=== PATIENT | male | born 1945 | race Caucasian/White ===

== ENCOUNTER 2025-01-09 07:05 | Day surgery (SDC) | payer OTHER ==
[~2025-01-09] VITALS: Ht 182.9 cm; Wt 88.5 kg
[2025-01-09] VITALS (10 sets, daily range): BP systolic 126–156; BP diastolic 70–81; PULSE 63–93; RESP 15–16; TEMP 97.3–97.6
[~2025-01-09 07:05] MED LIST: AMLO1CAP87 PO; AMOX-429 PO; CETI-89 PO; FLUT1BLS3 IH; MULT-1367 PO; PRAV20TA4 PO; SAW/1TAB2 PO; TAMS-55 PO
[2025-01-09] MEDS ORDERED: proPOFol 10 MG/ML 20ML VIAL IV ONE (08:44)
[2025-01-09] MEDS ORDERED: FINA5TAB41 PO (09:53)
[2025-01-09] MEDS ORDERED: DOCU-280 PO (09:53)
[2025-01-09] MEDS ORDERED: METO-408 PO (09:53)
[2025-01-09] MEDS ORDERED: AMLO-257 PO (09:53)
[2025-01-09] MEDS ORDERED: ALBUHFA IH (09:53)
[2025-01-09] MEDS ORDERED: MONT5TAB25 PO (09:53)
== END 2025-01-09 10:10 | disposition home or self-care (01) ==
LOC: ENDO 07:05 → DAH 07:15 → ENDO 10:10
PROVIDERS: ATTEND Internal Medicine
DX: R13.10 Dysphagia, unspecified (principal); K29.50 Unspecified chronic gastritis without bleeding; R12 Heartburn; K57.30 Diverticulosis of large intestine without perforation or abscess without bleeding; I10 Essential (primary) hypertension; E78.5 Hyperlipidemia, unspecified; Z90.89 Acquired absence of other organs; Z79.899 Other long term (current) drug therapy
CPT/HCPCS: 43249; 43239; J2704; C1726; A4620; A4215; J3490